=== PATIENT | male | born 1990 | race Caucasian/White ===

== ENCOUNTER 2016-11-16 05:24 | Emergency (ER) | payer SELFPAY ==
[2016-11-16] MEDS ORDERED: Bacitracin Oint 1 GM U/D Packet TOP ONE (05:34)
[2016-11-16] MEDS ORDERED: Diphtheria,Pertussis(Acell),Tetanus Vaccine 0.5 ML Syringe IM ONE (05:34)
[2016-11-16] MEDS ORDERED: Lidocaine/EPINEPHrine/Tetracaine Soln 1 ML TOP ONE (05:39)
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
[2016-11-16 06:47] VITALS: BP 125/84
== END 2016-11-16 06:22 ==
LOC: MW.ED 05:24
DX: S01.01XA Laceration without foreign body of scalp, initial encounter (principal); S81.012A Laceration without foreign body, left knee, initial encounter; S81.811A Laceration without foreign body, right lower leg, initial encounter; S41.031A Puncture wound without foreign body of right shoulder, initial encounter; Z23 Encounter for immunization; Z88.0 Allergy status to penicillin; Y04.2XXA Assault by strike against or bumped into by another person, initial encounter
CPT/HCPCS: 12001; 90471; 90715; 99282; 99283-25